=== PATIENT | female | born 1990 | race Caucasian/White ===

== ENCOUNTER 2017-07-14 22:09 | Emergency (ER) | payer BC ==
[~2017-07-14] VITALS: Ht 157.5 cm; Wt 51.0 kg
[2017-07-14 23:39] LABS: HEMATOCRIT 41.8 % (36.0-46.0); MCH 28.4 PG (29.0-34.0); MCHC 33.7 G/DL (30.0-36.0); MCV 84.1 FL (83-99); MEAN PLAT.VOLUME 10.2 uM^3 (9.5-12.4); PLATELET COUNT 224 K/uL (156-360); RBC DIS.WIDTH-CV 13.9 % (11.8-14.6); RBC DIS.WIDTH-SD 42.7 % (39-53); RED BLOOD COUNT 4.97 M/uL (3.80-5.20); WHITE BLOOD COUNT 8.5 K/uL (4.1-10.2)
[2017-07-14 23:47] LABS: CHLORIDE 108 mEq/L (99-109); POTASSIUM 4.5 mEq/L (3.7-5.4); SODIUM 140 mEq/L (136-147)
[2017-07-14 23:49] LABS: GLUCOSE 105 mg/dL (70-99)
[2017-07-14 23:51] LABS: ANION GAP 12 MEQ/L (2-14); TOTAL BILIRUBIN 0.3 mg/dL (0.0-1.0)
[2017-07-14 23:53] LABS: ALKALINE PHOSPHATASE 54 IU/L (3-129); GFR ESTIMATE (CALCULATED) > 59 mL/min/
[2017-07-14 23:54] LABS: UREA NITROGEN (BUN) 11 mg/dL (9-23)
[2017-07-15 00:03] LABS: QUANTITATIVE HCG < 4.0 MIU/ML
[2017-07-15 00:50] LABS: ADD MIUA? NO; BILIRUBIN NEGATIVE; BLOOD NEGATIVE; COLOR YELLOW ((YELLOW)); GLUCOSE (STRIP) NEGATIVE; KETONES NEGATIVE; LEUKOCYTES NEGATIVE; NITRITE NEGATIVE; PROTEIN (STRIP) NEGATIVE; SPECIFIC GRAVITY 1.015 (1.000-1.030); UCUL ADDED? NO; UROBILINOGEN 0.2 MG/DL (0.2-1.0)
[2017-07-15 01:03] VITALS: BP 140/87
== END 2017-07-15 01:05 | disposition home or self-care (01) ==
LOC: EME 22:09
PROVIDERS: Physician Assistant
DX: R10.9 Unspecified abdominal pain (principal); E86.0 Dehydration
CPT/HCPCS: 74000; 80053; 81003; 84702; 85027; 99281; 99285; J7030